=== PATIENT | female | born 1950 | race Caucasian/White ===

== ENCOUNTER 2018-07-17 21:13 | Inpatient (IN) | payer MEDICARE, OTHER ==
[~2018-07-17] VITALS: Ht 160 cm; Wt 57.5 kg
[2018-07-17] MEDS ORDERED: IBUPROFEN 600 MG TAB PO ONE (21:30)
[2018-07-17] MEDS ORDERED: LIDOCAINE 2%/EPI (MDV) 20ML INJ INJ ONE (21:30)
--- NOTE | 2018-07-17 22:55 | ERD ---
ER Documentation Chief Complaint Chief Complaint tripped and fell about 1800, c/o left eyebrow lac HPI This is a 68-year-old female patient who presents the emergency room with large laceration to her left orbit. States that she was opening a gate outside tripped on the opening and fell onto a concrete wall. Daughter states bleeding has been uncontrolled for over 2 hours. Denies any aspirin or anticoagulant coagulant use. States mother is acting normally, however patient and daughter are Upper Sorbian speaking and difficult to examine even with parts interpreter. Patient denies abuse. ROS All systems reviewed and are negative except as per history of present illness. Allergies Allergies: Coded Allergies: No Known Drug Allergies (Verified Allergy, Unknown, 07/17/18) PMhx/Soc Hx Respiratory Disorders: Yes (Asthma) Hx Cardiac Disorders: Yes (HTN, HDL) Hx Alcohol Use: No Hx Substance Use: No Hx Tobacco Use: No Smoking Status: Never smoker FmHx Family History: No diabetes, No coronary disease, No other Physical Exam Vitals Vital Signs Date Temp Pulse Resp B/P (MAP) Pulse Ox O2 O2 Flow FiO2 Time Delivery Rate 07/17/18 97.8 84 18 160/74 98 21:17 (102) Physical Exam Const: No acute distress Head: No crepitus or deformity to skull, large laceration to left eyebrow Eyes: Normal Conjunctiva, PERRL, EOMI, +swelling and ecchymosis to left orbit, tender to left upper and lateral orbital bone ENT: Normal External Ears, Nose and Mouth. No redding sign Neck: Full range of motion. No meningismus. No cervical spinal tenderness Resp: Clear to auscultation bilaterally Cardio: Regular rate and rhythm, no murmurs Abd: Soft, non tender, non distended. Normal bowel sounds Skin: No petechiae or rashes Back: No midline or flank tenderness Ext: No cyanosis, or edema Neur: Awake and alert, equal smile, equal sales representative electric service, no pronator drift, CNII-XII intact Psych: Normal Mood and Affect Result Diagram: 07/17/18 0698 07/17/18 7043 Results 24 hrs Laboratory Tests Test 07/17/18 23:57 White Blood Count 12.2 10^3/ul Red Blood Count 4.52 10^6/ul Hemoglobin 12.9 g/dl Hematocrit 40.0 % Mean Corpuscular Volume 88.5 fl Mean Corpuscular Hemoglobin 28.5 pg Mean Corpuscular Hemoglobin Concent 32.3 g/dl Red Cell Distribution Width 12.4 % Platelet Count 244 10^3/UL Mean Platelet Volume 9.6 fl Immature Granulocytes % 0.400 % Neutrophils % 58.6 % Lymphocytes % 32.4 % Monocytes % 7.5 % Eosinophils % 0.8 % Basophils % 0.3 % Nucleated Red Blood Cells % 0.0 /100WBC Immature Granulocytes # 0.050 10^3/ul Neutrophils # 7.1 10^3/ul Lymphocytes # 4.0 10^3/ul Monocytes # 0.9 10^3/ul Eosinophils # 0.1 10^3/ul Basophils # 0.0 10^3/ul Nucleated Red Blood Cells # 0.0 10^3/ul Prothrombin Time 12.3 Sec Prothrombin Time Ratio 1.0 INR International Normalized Ratio 0.90 Activated Partial Thromboplast Time 28.5 Sec Sodium Level 144 mmol/L Potassium Level 4.0 mmol/L Chloride Level 106 mmol/L Carbon Dioxide Level 27 mmol/L Anion Gap 11 Blood Urea Nitrogen 24 mg/dl Creatinine 0.64 mg/dl Est Glomerular Filtrat Rate mL/min > 60 mL/min Glucose Level 148 mg/dl Calcium Level 9.5 mg/dl Current Medications Medications Dose Sig/Eden Start Time Status Last (Trade) Ordered Route PRN Stop Time Admin Dose Reason Admin Ibuprofen 600 mg ONCE ONCE 07/17/18 DC 07/17/18 (Motrin) PO 21:30 07/17/18 21:54 21:31 Lidocaine/ 20 ml ONCE ONCE 07/17/18 DC Epinephrine INJ 21:30 07/17/18 (Xylocaine 21:31 2%/ Epi (Mdv) 20 ml) Procedures/MDM This is a 68-year-old female patient presents the emergency room with complaint of laceration to left eye. ED COURSE: The patient was stable throughout ED course. I kept the patient and/or family informed of laboratory and diagnostic imaging results throughout the ED course. DIAGNOSTIC IMAGING: Read by radiologist. Brain CT 1. Acute 4 mm subdural hematoma adjacent to the right parietal lobe without midline shift, herniation or additional areas of hemorrhage. 2. There is no evidence of acute displaced calvarial fracture. CT orbits Subcutaneous emphysema in the left lateral preseptal space and overlying the left temporalis muscle without evidence for orbital fracture, foreign body or retrobulbar hematoma or proptosis. PROCEDURES: Laceration Repair by me: Anesthesia: 2% lidocaine with epi locally Location: Left eyelid Tendon/Joint/Nerves: No injury Foreign body: None detected after copious irrigation and exploration Technique: 1 purse string, 2 corner, 4 Simple Interrupted Sutures; stellate wound Complexity: No subcutaneous sutures/mucosal repair/edge excision Post Closure Length: 4 cm Patient's bleeding was easily controlled in the department and there is no indication of anemia. No evidence of compartment syndrome, neurologic injury, vascular injury, open joint, tendon laceration, or foreign body. MEDICATIONS GIVEN: Ibuprofen Patient tolerated medication well with no adverse reactions. Patient reported improvement in pain. MDM: Due to diagnosis of SDH patient has been signed over to ARLENE Freeman NP July 17, 2018 22:55
[2018-07-18] VITALS (20 sets, daily range): BP systolic 107–131; BP diastolic 38–66; PULSE 70–83; RESP 12–18; Ht 160 cm; Wt 57.5 kg
--- NOTE | 2018-07-18 00:18 | QN ---
Documentation Comment I have seen and evaluated the patient along with the PA and/or MANAGER CLEANING provider. I agree with the evaluation and plan of care. Please see their documentation for full ER course and evaluation. In short: Patient with mechanical trip and fall, laceration overlying left eyebrow. On exam: Patient has a laceration that is hemostatic overlying left eyebrow. Mild ecchymoses to the periorbital region without evidence of entrapment. Patient is neurologically intact moving all 4 extremities no focal deficits. Assessment and plan: CT of the brain shows evidence of traumatic subdural. No midline shift. The patient is neuro intact. Emergent phone call placed to neurosurgeon who is on- call, Dr. Weeks. He recommends CT in the morning. Patient's pain is well controlled. Laceration be repaired by physician's assistant infant toddler teacher. Patient to be admitted to the ICU for close monitoring, CT in the morning. The patient takes no aspirin, no anticoagulants. Accepting care team and consultations: I discussed the current laboratory data, diagnostic imaging and emergency care provided. Admitting team: Dr. Castillo Admitting team indication: Insurance directed JOSH LEDESMA MD July 18, 2018 00:18
[2018-07-18] MEDS ORDERED: HYDROCODONE/APAP (5/325) TAB PO PRN (01:00)
[2018-07-18] MEDS ORDERED: LISINOPRIL 5 MG TAB PO SCH (01:00)
[2018-07-18] MEDS ORDERED: ONDANSETRON 4 MG INJ IV PRN (01:00)
[2018-07-18] MEDS ORDERED: LABETALOL HCL 20MG INJ IV PRN (01:00)
[2018-07-18] MEDS ORDERED: ALBUTEROL/IPRATROPIUM (NEB) 3 ML AMP NEB PRN (01:00)
[2018-07-18] MEDS ORDERED: ACETAMINOPHEN 325 MG TAB PO PRN (01:00)
[2018-07-18] MEDS ORDERED: DIPHTH/TET/ACEL PERTUSS (ADULT) 0.5 ML VIAL IM* ONE (02:00)
[2018-07-18] MEDS ORDERED: PANTOPRAZOLE 40 MG INJ IV SCH (06:00)
--- NOTE | 2018-07-18 07:07 | HP ---
Date/Time of Note Date/Time of Note DATE: 07/18/18 TIME: 06:58 Assessment/Plan VTE Prophylaxis SCD applied (from Nsg): Yes Pharmacological prophylaxis: NA/contraindicated Pharm contraindication: bleeding Lines/Catheters IV Catheter Type (from Nrsg): Saline Lock Urinary Cath still in place: No Assessment/Plan Assessment/Plan 1. Subdural hematoma: result of accidentally falling onto concrete wall -Admit to ICU -Repeat head CT in a.m. -Goal SBP less than 140 -Dr. Weeks neurosurgeon was consulted in the ER 2. Large left orbital laceration: Cause as mentioned above -CT shows subcutaneous emphysema in the left lateral preseptal space and overlying the left temporalis muscle without evidence for orbital fracture, foreign body or retrobulbar hematoma or proptosis. -Monitor closely 3. Mild leukocytosis: Likely reactive 4. History of asthma: No sign of exacerbation Result Diagram: 07/17/18 2357 07/17/18 2357 Results 24hrs Laboratory Tests Test 07/17/18 23:57 White Blood Count 12.2 H Red Blood Count 4.52 Hemoglobin 12.9 Hematocrit 40.0 Mean Corpuscular Volume 88.5 Mean Corpuscular Hemoglobin 28.5 L Mean Corpuscular Hemoglobin Concent 32.3 Red Cell Distribution Width 12.4 Platelet Count 244 Mean Platelet Volume 9.6 Immature Granulocytes % 0.400 Neutrophils % 58.6 Lymphocytes % 32.4 Monocytes % 7.5 Eosinophils % 0.8 Basophils % 0.3 Nucleated Red Blood Cells % 0.0 Immature Granulocytes # 0.050 H Neutrophils # 7.1 Lymphocytes # 4.0 H Monocytes # 0.9 Eosinophils # 0.1 Basophils # 0.0 Nucleated Red Blood Cells # 0.0 Prothrombin Time 12.3 Prothrombin Time Ratio 1.0 INR International Normalized Ratio 0.90 Activated Partial Thromboplast Time 28.5 Sodium Level 144 Potassium Level 4.0 Chloride Level 106 Carbon Dioxide Level 27 Anion Gap 11 Blood Urea Nitrogen 24 H Creatinine 0.64 Est Glomerular Filtrat Rate mL/min > 60 Glucose Level 148 Calcium Level 9.5 HPI/ROS Admit Date/Time Admit Date/Time July 18, 2018 at 00:16 Hx of Present Illness Patient is a 68-year-old female with a history of dyslipidemia and asthma who presented to the ER with face and head injury. Patient hit a concrete wall after she tripped while opening a gate. She sustained significant left orbital laceration, which has been bleeding for a while prior to arrival to the ER. Denied loss of consciousness. When presented to ER, blood pressure was 160/74. Labs shows a WBC of 12,000 otherwise CBC and BMP within acceptable range. Head CT shows acute 4 mm subdural hematoma adjacent to the right parietal lobe without midline shift, herniation or additional areas of hemorrhage without evidence of acute displaced calvarial fracture. CT of the orbits shows Subcutaneous emphysema in the left lateral preseptal space and overlying the left temporalis muscle without evidence for orbital fracture, foreign body or retrobulbar hematoma or proptosis. PMH/Family/Social Past Medical History Medical History: other (See HPI) Medications Current Medications Ondansetron HCl (Zofran Inj) 4 mg Q6H PRN IV NAUSEA AND/OR VOMITING; Start 07/18/18 at 01:00 Albuterol/ Ipratropium (Duoneb) 3 ml Q2H RESP THERAPY PRN NEB SHORTNESS OF BREATH; Start 07/18/18 at 01:00 Acetaminophen (Tylenol Tab) 650 mg Q6H PRN PO PAIN LEVEL 1-3 OR FEVER; Start 07/18/18 at 01:00 Acetaminophen/ Hydrocodone Bitart ([place] (5/325)) 1 tab Q6H PRN PO PAIN LEVEL 4-6; Start 07/18/18 at 01:00 Pantoprazole (Protonix Iv) 40 mg DAILY@06 IV Last administered on 07/18/18at 06:52; Admin Dose 40 MG; Start 07/18/18 at 06:00 Labetalol HCl (Labetalol) 10 mg Q10M PRN IV SBP > 160; Start 07/18/18 at 01:00 Coded Allergies: No Known Drug Allergies (Verified Allergy, Unknown, 07/17/18) Past Surgical History Past Surgical Hx: other (HPI) Family History Significant Family History: no pertinent family hx Social History Alcohol Use: none Smoking Status: Never smoker Drug Use: none Exam/Review of Systems Vital Signs Vitals Vital Signs Date Temp Pulse Resp B/P (MAP) Pulse Ox O2 O2 Flow FiO2 Time Delivery Rate 07/18/18 77 16 120/55 97 06:00 (76) 07/18/18 98.5 04:00 07/18/18 Room Air 01:15 Intake and Output 07/17/18 07/17/18 07/18/18 1515:00 23:00 07:00 IntakeIntake Total 0 ml OutputOutput Total 200 ml BalanceBalance -200 ml Exam Constitutional: other (No acute distress) Head: lacerations Eyes: other (Large left orbital laceration) Respiratory: clear to auscultation Cardiovascular: regular rate and rhythm Gastrointestinal: soft Extremities: normal pulses PORTER JIMENEZ MD July 18, 2018 07:07
--- NOTE | 2018-07-18 08:10 | CONS ---
Assessment/Plan Assessment/Plan Assessment/Plan (Daily) Acute subdural hematoma CT scan to be repeated No significant motor or cognitive neurological findings on examination History of hyperlipidemia History of asthma stable Will follow 1. Acute 4 mm subdural hematoma adjacent to the right parietal lobe without midline shift, herniation or additional areas of hemorrhage. 2. There is no evidence of acute displaced calvarial fracture. 3. Critical results discussed by telephone with the patient's emergency room healthcare provider, Varsha Smith, at 23:31 Consultation Date/Type/Reason Admit Date/Time July 18, 2018 at 00:16 Date/Time of Note DATE: 07/18/18 TIME: 08:08 Hx of Present Illness All history is taken from medical records, 's notes and in speaking to his son at the bedside patient apparently took a mechanical fall striking her striking her face against a concrete wall. There was no loss of conscious dizzi ness diplopia disorientation seizure activity prior to presentation she was brought to emergency room by family members work-up showed a 4 mm subdural hematoma adjacent to the right parietal lobe without midline shift neurosurgery was contacted in the emergency room. This time patient complains of no headache. Other medical problems include history of hyperlipidemia and asthma. She is very comfortable appearing on examination Past Medical History Medical History: high cholesterol, other (Asthma) Medications Current Medications Ondansetron HCl (Zofran Inj) 4 mg Q6H PRN IV NAUSEA AND/OR VOMITING; Start 07/18/18 at 01:00 Albuterol/ Ipratropium (Duoneb) 3 ml Q2H RESP THERAPY PRN NEB SHORTNESS OF BREATH; Start 07/18/18 at 01:00 Acetaminophen (Tylenol Tab) 650 mg Q6H PRN PO PAIN LEVEL 1-3 OR FEVER; Start 07/18/18 at 01:00 Acetaminophen/ Hydrocodone Bitart ([place] (5/325)) 1 tab Q6H PRN PO PAIN LEVEL 4-6; Start 07/18/18 at 01:00 Pantoprazole (Protonix Iv) 40 mg DAILY@06 IV Last administered on 07/18/18at 06:52; Admin Dose 40 MG; Start 07/18/18 at 06:00 Labetalol HCl (Labetalol) 10 mg Q10M PRN IV SBP > 160; Start 07/18/18 at 01:00 Allergies: Coded Allergies: No Known Drug Allergies (Verified Allergy, Unknown, 07/17/18) Past Surgical History Past Surgical Hx: other (HPI) Social History Alcohol Use: none Smoking Status: Never smoker Drug Use: none Exam/Review of Systems Exam Vitals Vital Signs Date Temp Pulse Resp B/P (MAP) Pulse Ox O2 O2 Flow FiO2 Time Delivery Rate 07/18/18 77 16 120/55 97 06:00 (76) 07/18/18 98.5 04:00 07/18/18 Room Air 01:15 Intake and Output 07/17/18 07/17/18 07/18/18 1515:00 23:00 07:00 IntakeIntake Total 0 ml OutputOutput Total 200 ml BalanceBalance -200 ml Constitutional: alert, oriented, well developed Psych: other (Very pleasant very cooperative) Head: other (Bandaged, no redding sign) Neck: supple, non-tender; No jvd, No bruits, No masses, No thyromegaly, No nuchal rigidity, No other Cardiovascular: regular rate and rhythm, nl pulses Neurological: other (Through her son interpretation she is oriented x3 cranial nerves II through XII grossly intact motor and sensory findings are grossly within normal limits she is pleasant she is smiling she is following all simple commands.); No DIRECTOR OF DEMENTIA OPERATIONS II-XII intact, No nl mental status, No nl speech, No nl strength, No confused, No DTR's symmetric, No focal weakness, No lethargic, No numbness, No reflexes, No unresponsive Results Result Diagram: 07/17/18 8208 07/17/18 8556 Results 24hrs Laboratory Tests Test 07/17/18 23:57 White Blood Count 12.2 H Red Blood Count 4.52 Hemoglobin 12.9 Hematocrit 40.0 Mean Corpuscular Volume 88.5 Mean Corpuscular Hemoglobin 28.5 L Mean Corpuscular Hemoglobin Concent 32.3 Red Cell Distribution Width 12.4 Platelet Count 244 Mean Platelet Volume 9.6 Immature Granulocytes % 0.400 Neutrophils % 58.6 Lymphocytes % 32.4 Monocytes % 7.5 Eosinophils % 0.8 Basophils % 0.3 Nucleated Red Blood Cells % 0.0 Immature Granulocytes # 0.050 H Neutrophils # 7.1 Lymphocytes # 4.0 H Monocytes # 0.9 Eosinophils # 0.1 Basophils # 0.0 Nucleated Red Blood Cells # 0.0 Prothrombin Time 12.3 Prothrombin Time Ratio 1.0 INR International Normalized Ratio 0.90 Activated Partial Thromboplast Time 28.5 Sodium Level 144 Potassium Level 4.0 Chloride Level 106 Carbon Dioxide Level 27 Anion Gap 11 Blood Urea Nitrogen 24 H Creatinine 0.64 Est Glomerular Filtrat Rate mL/min > 60 Glucose Level 148 Calcium Level 9.5 Medications Medication Current Medications Ondansetron HCl (Zofran Inj) 4 mg Q6H PRN IV NAUSEA AND/OR VOMITING; Start 07/18/18 at 01:00 Albuterol/ Ipratropium (Duoneb) 3 ml Q2H RESP THERAPY PRN NEB SHORTNESS OF BREATH; Start 07/18/18 at 01:00 Acetaminophen (Tylenol Tab) 650 mg Q6H PRN PO PAIN LEVEL 1-3 OR FEVER; Start 07/18/18 at 01:00 Acetaminophen/ Hydrocodone Bitart ([place] (5/325)) 1 tab Q6H PRN PO PAIN LEVEL 4-6; Start 07/18/18 at 01:00 Pantoprazole (Protonix Iv) 40 mg DAILY@06 IV Last administered on 07/18/18at 06:52; Admin Dose 40 MG; Start 07/18/18 at 06:00 Labetalol HCl (Labetalol) 10 mg Q10M PRN IV SBP > 160; Start 07/18/18 at 01:00 ALEXANDER SIMONS July 18, 2018 08:10
[2018-07-18] MEDS ORDERED: OMEG1CAP2 PO (13:06)
[2018-07-18] MEDS ORDERED: ATOR-2 PO (13:06)
[2018-07-18] MEDS ORDERED: ALEN70TA5 PO (13:07)
[2018-07-18] MEDS ORDERED: CALC-74 PO (13:08)
[2018-07-18] MEDS ORDERED: SOD CHLORIDE 0.9% 1,000 ML IV ONE (13:30)
--- NOTE | 2018-07-18 15:11 | PDOCDIS ---
Discharge Instructions CONDITION [id number] Patient Condition: [id number] Good HOME CARE INSTRUCTIONS: [id number] Diet Instructions: [id number] Regular ACTIVITY: [id number] Activity Restrictions: [id number] Slowly Increase Activity FOLLOW UP/APPOINTMENTS Follow-up Plan FOLLOW UP WITH YOUR PRIMARY CARE PHYSICIAN IN 1-2 WEEKS NADEGE KOTHARI July 18, 2018 15:11
--- NOTE | 2018-07-18 17:34 | DS ---
Date/Time of Note Date/Time of Note DATE: 07/18/18 TIME: 17:31 Discharge Summary Admission/Discharge Info Admit Date/Time July 18, 2018 at 00:16 Discharge Date/Time July 18, 2018 Discharge Diagnosis 1. Subdural hematoma: result of accidentally falling onto concrete wall -Repeat CT is stable -Home health for PT 2. Large left orbital laceration: Cause as mentioned above -CT shows subcutaneous emphysema in the left lateral preseptal space and overlying the left temporalis muscle without evidence for orbital fracture, foreign body or retrobulbar hematoma or proptosis. 3. Mild leukocytosis: Likely reactive 4. History of asthma: No sign of exacerbation Patient Condition: Good Hospital Course Patient is a 68-year-old female with a history of asthma, patient had an accidental fall onto a concrete wall and suffered a large left orbital laceration, CT head showed a subdural hematoma and repeat CT head was stable. Patient had no acute neurological pathology and was stable for DC to home with home health. Patient was seen by PT, front wheel walker was ordered. On the day of discharge patient's vitals, labs and physical exam are stable. Home Meds Reported Medications Calcium Carbonate-Vit D3-Minerals (Calcium 600 + D + Minerals) 1 Each Tablet, 1 TAB PO BID, TAB 07/18/18 Alendronate Sodium* (Fosamax*) 70 Mg Tablet, 70 MG PO Q7D, #4 TAB 07/18/18 Atorvastatin* (Atorvastatin*) 80 Mg Tablet, 80 MG PO QHS, #30 TAB 07/18/18 [place]-3 Acid Ethyl Esters (Lovaza) 1 Gm Capsule, 2 GM PO BID, CAP 07/18/18 Follow-up Plan FOLLOW UP WITH YOUR PRIMARY CARE PHYSICIAN IN 1-2 WEEKS Primary Care Provider Care Physician No Primary Time spent on discharge: > 30 minutes NADEGE KOTHARI July 18, 2018 17:34
--- NOTE | 2018-07-18 18:41 | QN ---
Documentation Comment CTSP for right sided subdural 'hematoma" after ground level fall. CT shows 3-4mm enlarged subdural space/ hygroma vs chronic SDH, unchanged on repeat CT. There is no indication for neurosurgical intervention & patient may follow up with me with repeat CT. Anticoagulation is relatively contraindicated in any event. DEON SEBASTIAN MD July 18, 2018 18:41
== END 2018-07-18 17:05 | disposition home health service (06) | DRG 87 ==
LOC: FTE 21:13 → ICU 07-18 00:16
PROVIDERS: ADMIT Internal Medicine; ATTEND Internal Medicine
PROC: 08QPXZZ Repair Left Upper Eyelid, External Approach (ICD-10-PCS; principal; 2018-07-17)
DX: S06.5X0A Traumatic subdural hemorrhage without loss of consciousness, initial encounter (principal); E78.5 Hyperlipidemia, unspecified; I10 Essential (primary) hypertension; J45.909 Unspecified asthma, uncomplicated; S01.112A Laceration without foreign body of left eyelid and periocular area, initial encounter; W01.198A Fall on same level from slipping, tripping and stumbling with subsequent striking against other object, initial encounter; Y93.89 Activity, other specified; Y92.014 Private driveway to single-family (private) house as the place of occurrence of the external cause; Y99.8 Other external cause status
CPT/HCPCS: 36415; 70450; 70480; 80048; 85025; 85610; 85730; 90715; 92610; 97161; 97167; C9113; J7030

== ENCOUNTER 2018-08-01 09:46 | Emergency (ER) | payer MEDICARE, OTHER ==
[~2018-08-01] VITALS: Ht 152.4 cm; Wt 55.5 kg
[~2018-08-01 09:46] MED LIST: ALEN70TA5 PO; ATOR-2 PO; CALC-74 PO; OMEG1CAP2 PO
[2018-08-01 09:49] VITALS: BP 143/65; PULSE 71; RESP 16; Ht 152.4 cm; Wt 55.5 kg
--- NOTE | 2018-08-01 10:37 | ERD ---
ER Documentation Chief Complaint Chief Complaint FOR SUTURE REMOVAL ON LT EYELID , LT EYE DISCHARGE HPI Patient is a 68-year-old female BIB daughter with past medical history of subdural hematoma presents the ER for concerns of suture removal. Patient had sutures placed on 07-18-18. Patient denies any headaches, nausea, vomiting, acute confusion or excessive sleepiness. Patient does have clear tearing of her left eye. Patient denies any blurry vision. Patient is otherwise acting up appropriately per her daughter. ROS All systems reviewed and are negative except as per history of present illness. Medications Home Meds Reported Medications Calcium Carbonate-Vit D3-Minerals (Calcium 600 + D + Minerals) 1 Each Tablet, 1 TAB PO BID, TAB 07/18/18 Alendronate Sodium* (Fosamax*) 70 Mg Tablet, 70 MG PO Q7D, #4 TAB 07/18/18 Atorvastatin* (Atorvastatin*) 80 Mg Tablet, 80 MG PO QHS, #30 TAB 07/18/18 [place]-3 Acid Ethyl Esters (Lovaza) 1 Gm Capsule, 2 GM PO BID, CAP 07/18/18 Allergies Allergies: Coded Allergies: No Known Drug Allergies (Verified Allergy, Unknown, 07/17/18) PMhx/Soc History of Surgery: No Anesthesia Reaction: No Hx Neurological Disorder: No Hx Respiratory Disorders: Yes (asthma) Hx Cardiac Disorders: Yes (high cholesterol) Hx Psychiatric Problems: No Hx Miscellaneous Medical Probl: No Hx Alcohol Use: No Hx Substance Use: No Hx Tobacco Use: No FmHx Family History: No diabetes Physical Exam Vitals Vital Signs Date Temp Pulse Resp B/P (MAP) Pulse Ox O2 O2 Flow FiO2 Time Delivery Rate 08/01/18 98.0 71 16 143/65 98 09:49 (91) Physical Exam GENERAL: Well-developed, well-nourished female. Appears in no acute distress. Speaking in full sentences. HEAD: Normocephalic, atraumatic. EYES: Pupils are equally reactive bilaterally. EOMs grossly intact. No conjunctival erythema. No periorbital swelling or redness. NECK: Supple. No meningismus. Normal range of motion of the neck. LUNG: Clear to auscultation bilaterally. No rhonchi, wheezing, rales or coarse breath sounds. HEART: Regular rate and rhythm. No murmurs, rubs or gallops. EXTREMITIES: Equal pulses bilaterally. No peripheral clubbing, cyanosis or edema. No unilateral leg swelling. NEUROLOGIC: Alert and oriented. Moving all four extremities without any difficulty. Normal speech. Steady gait. SKIN: 7 sutures noted to the left eyebrow. No surrounding warmth or erythema. No wound dehiscence. Normal color. Warm and dry. No rashes or lesions. Procedures/MDM Suture Removal by me: 7 Sutures removed with tweezers and scissors without incident. Wound shows no evidence of infection, foreign body, neurologic injury, vascular injury, open joint or tendon laceration. Patient to follow up PRN. Patient given information for neurosurgeon who saw her while she is admitted. Patient advised to follow-up as needed. Departure Diagnosis: Primary Impression: Encounter for removal of sutures Condition: Fair Patient Instructions: Suture Removal, No Complication Referrals: DEON SEBASTIAN MD [facility] YOU HAVE RECEIVED A MEDICAL SCREENING EXAM AND THE RESULTS INDICATE THAT YOU DO NOT HAVE A CONDITION THAT REQUIRES URGENT TREATMENT IN THE EMERGENCY DEPARTMENT. FURTHER EVALUATION AND TREATMENT OF YOUR CONDITION CAN WAIT UNTIL YOU ARE SEEN IN YOUR DOCTORS OFFICE WITHIN THE NEXT 1-2 DAYS. IT IS YOUR RESPONSIBILITY TO MAKE AN APPOINTMENT FOR [facility]. IF YOU HAVE A PRIMARY DOCTOR --you should call your primary doctor and schedule an appointment IF YOU DO NOT HAVE A PRIMARY DOCTOR YOU CAN CALL OUR PHYSICIAN REFERRAL HOTLINE AT IF YOU CAN NOT AFFORD TO SEE A PHYSICIAN YOU CAN CHOSE FROM THE FOLLOWING [facility] [address] [facility]. [facility] [address] [facility]. [facility] [address] [facility] [facility] [address] [facility]. [facility] [address] [facility]. [facility]. [address] [facility] YOU HAVE RECEIVED A MEDICAL SCREENING EXAM AND THE RESULTS INDICATE THAT YOU DO NOT HAVE A CONDITION THAT REQUIRES URGENT TREATMENT IN THE EMERGENCY DEPARTMENT. FURTHER EVALUATION AND TREATMENT OF YOUR CONDITION CAN WAIT UNTIL YOU ARE SEEN IN YOUR DOCTORS OFFICE WITHIN THE NEXT 1-2 DAYS. IT IS YOUR RESPONSIBILITY TO MAKE AN APPOINTMENT FOR FOLOW-UP CARE. IF YOU HAVE A PRIMARY DOCTOR --you should call your primary doctor and schedule and appointment IF YOU DO NOT HAVE A PRIMARY DOCTOR YOU CAN CALL OUR PHYSICIAN REFERRAL HOTLINE AT . IF YOU CAN NOT AFFORD TO SEE A PHYSICIAN YOU CAN CHOSE FROM THE FOLLOWING [facility], [facility] INSTITUTIONS: [facility] [address] [place] [address] [facility] [address] [place] [address] [facility] + [facility] [address] [place] [address] Additional Instructions: Follow-up with neurologist as needed. Call your primary care doctor TOMORROW for an appointment during the next 1-2 days.See the doctor sooner or return here if your condition worsens before your appointment time. ARBEN BURGOS PA-C August 01, 2018 10:37
== END 2018-08-01 10:30 | disposition home or self-care (01) ==
LOC: FTE 09:46
DX: Z48.02 Encounter for removal of sutures (principal); J45.909 Unspecified asthma, uncomplicated
CPT/HCPCS: 99281